=== PATIENT | male | born 1995 | race Caucasian/White ===

== ENCOUNTER 2017-04-25 13:03 | Emergency (ER) | payer OTHER ==
--- NOTE | 2017-04-25 14:46 | ER Document Report ---
HPI - HPI Patient complains to provider of: sore throat Onset: Other - tuesday Onset/Duration: Gradual Quality of pain: Achy Pain Level: 2 Associated Symptoms: Body/muscle aches - have resolved, Rhinnorhea, Sore throat. denies: Nonproductive cough, Productive cough, Fever, Headache, Hoarseness, Hurts to breath, Sinus pain/drainage, Shortness of breath Exacerbated by: Denies Relieved by: Denies Similar symptoms previously: No Recently seen / treated by doctor: No Notes: h/o strep, had T&A as a kid for recurrent strep and tonsillitis - DERM Skin Color: Normal Past Medical History - Social History Smoking Status: Unknown if Ever Smoked Family History: Malignancy Patient has suicidal ideation: No Patient has homicidal ideation: No - Past Medical History Cardiac Medical History: Reports: Hx Hypertension Renal/ Medical History: Reports: Hx Kidney Stones. Denies: Hx Peritoneal Dialysis Past Surgical History: Reports: Hx Tonsillectomy - Immunizations Immunizations up to date: No Hx Diphtheria, Pertussis, Tetanus Vaccination: No Vertical Provider Document - CONSTITUTIONAL Agree With Documented VS: Yes Exam Limitations: No Limitations General Appearance: WD/WN, No Apparent Distress - INFECTION CONTROL TRAVEL OUTSIDE OF THE [place] IN LAST 30 DAYS: Yes COUNTRY TRAVELED TO/FROM: [place] - HEENT HEENT: Atraumatic, Normal ENT Exam, Normocephalic, PERRLA Notes: Uvula midline. Airway patent. No evidence of tonsillar enlargement, peritonsillar abscess, retropharyngeal abscess. - NECK Neck: Normal Inspection. negative: Lymphadenopathy-Left, Lymphadenopathy-Right - RESPIRATORY Respiratory: Breath Sounds Normal, No Respiratory Distress, Chest Non-Tender. negative: Rales, Rhonchi, Wheezing O2 Sat by Pulse Oximetry: 100 - CARDIOVASCULAR Cardiovascular: Regular Rate, Regular Rhythm, No Murmur Pulses: Normal: Radial - MUSCULOSKELETAL/EXTREMETIES Musculoskeletal/Extremeties: MAEW, FROM, Non-Tender, No Edema. negative: Eccymosis - NEURO Level of Consciousness: Awake, Alert, Appropriate Motor/Sensory: No Motor Deficit, No Sensory Deficit - DERM Integumentary: Warm, Dry, No Rash Course - Re-evaluation Re-evalutation: 04/25/17 14:49 Patient is a 21-year-old male who is hemodynamic stable, no acute distress afebrile. No concern for retropharyngeal or peritonsillar abscess, airway compromise. Patient strep test came back negative. Patient is stable for discharge home. Can follow-up with primary care as needed - Vital Signs Vital signs: Temp Pulse Resp BP Pulse Ox 98.2 F 101 H 20 153/90 H 100 04/25/17 13:07 04/25/17 13:07 04/25/17 13:07 04/25/17 13:07 04/25/17 13:07 Discharge - Discharge Clinical Impression: Sore throat Condition: Good Disposition: HOME, SELF-CARE Instructions: Sore Throat (OM) Additional Instructions: You can take Tylenol as needed for pain. Please return to the emergency department with any difficulty swallowing, difficulty breathing, difficulty speaking, muffled speech, drooling, temperature above 103.0 that is not responding to Tylenol or Motrin. Forms: Elevated Blood Pressure, Return to Work Referrals: DALILA ROCHE MD [Primary Care Provider] - Follow up as needed
[2017-04-25 15:06] VITALS: BP 125/81
== END 2017-04-25 14:58 | disposition home or self-care (01) ==
LOC: ER 13:03
DX: J02.9 Acute pharyngitis, unspecified (principal); M79.1 Myalgia; I10 Essential (primary) hypertension; Z87.442 Personal history of urinary calculi
CPT/HCPCS: 87070; 87880; 99283